=== PATIENT | female | born 1955 | race Caucasian/White ===

== ENCOUNTER 2021-01-15 14:57 | Outpatient (REF) | payer OTHER, SELFPAY ==
--- NOTE | 2021-01-15 13:25 | PAPFT_PTH ---
PATIENT: Maliha Freedman LOC: [facility] U#:[id number] AGE/SX: 65/F ROOM: RE01/15/[address]: Eladia Syed DO : 1955 BED: DIS: 01/15/2021 SPEC #: [id number] RECD: 01/15/21 18:29 STATUS: PEDRITO REQ #: [id number] RANDELL: 01/15/21 13:[address]: Eladia Syed DEPT: [facility] Cytology RECD BY: Becca Pierre Tissues: 1 - CX/ENDOCX FOR PAP SMEARS Procedures: PAP THIN PREP/[facility] Screening HPV DNA PROBE Comments: [id number]
== END 2021-01-15 14:58 | disposition home or self-care (01) ==
LOC: LBN 14:57
PROVIDERS: Visit Provider Obstetrics & Gynecology
DX: Z12.4 Encounter for screening for malignant neoplasm of cervix (principal); Z11.51 Encounter for screening for human papillomavirus (HPV)
CPT/HCPCS: 88142; 87624